=== PATIENT | female | born 1990 | race Caucasian/White ===

== ENCOUNTER 2019-06-26 21:08 | Emergency (ER) | payer OTHER ==
[~2019-06-26] VITALS: Ht 165.1 cm; Wt 70.3 kg
[2019-06-26 21:19] VITALS: Ht 165.1 cm; Wt 70.3 kg
[2019-06-26 22:01] VITALS: BP 118/71
== END 2019-06-26 22:01 | disposition home or self-care (01) ==
LOC: ED 21:08
DX: L50.9 Urticaria, unspecified (principal)